=== PATIENT | female | born 1960 | race Hispanic/Latino ===

== ENCOUNTER 2017-06-25 07:30 | Day surgery (SDC) | payer OTHER, BC ==
[2017-06-25] MEDS ORDERED: ceFAZolin IV 1 gm in Dextrose 1 GM/50 ML BAG IVPB ONE ×2 (08:27→09:16)
[2017-06-25] MEDS ORDERED: Bupivacaine HCl 0.5% PF (10 ml) Inj ONE (08:27)
[2017-06-25] MEDS ORDERED: Gadodiamide 287 MG/ML VIAL (15ML) IV ONE (08:27)
[2017-06-25] MEDS ORDERED: Iohexol 240 (50 ml) ONE (08:27)
[2017-06-25] MEDS ORDERED: Gentamicin 80 mg/2mL Inj. ONE (08:37)
[2017-06-25] MEDS ORDERED: Bupivacaine HCl 0.25% PF (10 ml) Inj ONE (08:46)
[2017-06-25] MEDS ORDERED: Iohexol 300 50 ML ONE (08:46)
[2017-06-25] MEDS ORDERED: Lactated Ringer's 1,000 ML IV ONE (09:00)
[2017-06-25] MEDS ORDERED: Midazolam 2 MG/2 ML VIAL ONE ×3 (09:04→09:26)
[2017-06-25] MEDS ORDERED: Naloxone 0.4 mg/ml Inj (Adult) ONE (09:10)
[2017-06-25] MEDS ORDERED: Flumazenil 0.1 mg/ml Inj (5ml) IVP ONE (09:22)
[2017-06-25] MEDS ORDERED: HYDROmorphone 0.5 mg/0.5 ml ISec IVP PRN ×2 (10:00→10:06)
[2017-06-25 11:16] VITALS: RESP 18
[2017-06-25 11:56] VITALS: BP 106/67; PULSE 63; TEMP 97.9; O2SAT 99
--- NOTE | 2017-06-25 16:22 | RAD ---
PROCEDURE: INTRA UNDER FLUOROSCOPY HISTORY: BULGE L5-S1 WITH RADICULOPATHY COMPARISON: NONE TECHNIQUE: Intra under fluoroscopy was provided the referring physician to assist in discography apparently. FINDINGS: Please see op report for further detail. IMPRESSION: Please see operative report for further detail. 34.3 seconds of fluoroscopy time was utilized with a total radiation dose of 5.3 mGy.
== END 2017-06-25 11:40 | disposition home or self-care (01) ==
LOC: C.SDS 07:30
PROVIDERS: ATTEND Specialist
DX: M51.27 Other intervertebral disc displacement, lumbosacral region (principal); M54.17 Radiculopathy, lumbosacral region
CPT/HCPCS: 62290; 76000; A9579; J0690; J1580; J2250; J2310; J2765; J3010; J7120; Q9967